=== PATIENT | female | born 1980 | race Caucasian/White ===

== ENCOUNTER 2022-03-16 03:02 | Emergency (ER) | payer BC, OTHER ==
[2022-03-16] MEDS ORDERED: Tetracaine 0.5% PF 4 ML BOT ONE (03:55)
[2022-03-16] MEDS ORDERED: Fluorescein Opthalmic Strip ONE (03:55)
== END 2022-03-16 04:32 | disposition home or self-care (01) ==
LOC: CSHERS 03:02
DX: H16.002 Unspecified corneal ulcer, left eye (principal); B00.52 Herpesviral keratitis
CPT/HCPCS: 99283